=== PATIENT | male | born 1960 | race Caucasian/White ===

== ENCOUNTER 2017-04-17 15:07 | Observation (INO) | payer OTHER ==
[~2017-04-17] VITALS: Ht 160 cm; Wt 86.2 kg
[~2017-04-17 15:07] MED LIST: FLEXERIL10 MG PO; LEVAQUIN500 M1 PO; MOTRIN600 MG PO
--- NOTE | 2017-04-17 15:37 | ED GI/GU/ABDOMINAL COMPLAINT ---
History of Present Illness General Chief Complaint: Male Genitourinary Problems Stated Complaint: PT HAS NO BLOOD MOVING THRU RT TESTICLE Source: patient Exam Limitations: no limitations Vital Signs & Intake/Output Vital Signs & Intake/Output Vital Signs Date Time Temp Pulse Resp B/P B/P Pulse O2 O2 Flow FiO2 Mean Ox Delivery Rate 04/17 1537 99.0 89 22 130/78 98 Allergies Uncoded Allergies: CT DYE (Mild, NAUSEA 03/11/17) Reconcile Medications CYCLOBENZAPRINE HCL (Flexeril) 10 MG TAB 1 TAB PO Q8P PRN PAIN Ibuprofen (Motrin) 600 MG TAB 1 TAB PO Q6P PRN PAIN Levofloxacin (Levaquin) 500 MG TABLET 1 TAB PO DAILY EPIDIDIMYTIS Triage Note: PER PT TESTICULAR TORSION SENT BY [facility] AFTER + TEST Triage Nurses Notes Reviewed? yes Onset: Abrupt Duration: week(s): (4), intermittent Timing: recent history Location: scrotal Radiation: no radiation Activities at Onset: none No Modifying Factors: none HPI: 86-year-old male comes into the emergency room for further evaluation of right testicular pain and swelling. Patient was seen here about a month ago and had an ultrasound done and was diagnosed with epididymitis and sent to urology. Father with urologist. Symptoms were getting better. Given outpatient ultrasound done today and was told that there is no blood flow to his testicle and he needed to come to the hospital. He was on a course of ciprofloxacin. Denies any fever or vomiting. Comes in for further evaluation. Past History Travel History Traveled to [place] past 21 day No Medical History Any Pertinent Medical History? see below for history Neurological: NONE EENT: NONE Cardiovascular: NONE Respiratory: NONE Gastrointestinal: NONE Hepatic: NONE Renal: NONE Musculoskeletal: NONE Psychiatric: NONE Endocrine: NONE Blood Disorders: NONE Cancer(s): NONE OVERLOCK HEMMER/Reproductive: TESTICULAR SWELLING Surgical History Surgical History: non-contributory Psychosocial History What is your primary language Rw[place]an Tobacco Use: Never used Family History Hx Contributory? No Review of Systems Review of Systems Constitutional: Reports: no symptoms. EENTM: Reports: no symptoms. Respiratory: Reports: no symptoms. Cardiovascular: Reports: no symptoms. GI: Reports: no symptoms. Genitourinary: Reports: see HPI. Musculoskeletal: Reports: no symptoms. Skin: Reports: no symptoms. Neurological/Psychological: Reports: no symptoms. Hematologic/Endocrine: Reports: no symptoms. Immunologic/Allergic: Reports: no symptoms. All Other Systems: Reviewed and Negative Physical Exam Physical Exam General Appearance: well developed/nourished, no apparent distress, alert, awake Head: atraumatic, normal appearance Eyes: Bilateral: normal appearance, EOMI. Ears, Nose, Throat, Mouth: hearing grossly normal, moist mucous membrane Neck: normal inspection Respiratory: normal breath sounds, no respiratory distress Cardiovascular: regular rate/rhythm Gastrointestinal: soft Back: normal inspection Extremities: normal range of motion Neurologic/Psych: awake, alert, oriented x 3, normal gait Skin: intact, normal color Core Measures ACS in differential dx? No Sepsis Present: No Sepsis Focused Exam Completed? No Progress Differential Diagnosis: STD, testicular torsion, ureterolithiasis, urinary retention, urethritis, UTI/pyelo Plan of Care: Orders Procedure Date/time Status PARTIAL THROMBOPLASTIN TIME 04/17 1536 Complete PROTHROMBIN TIME 04/17 1536 Complete COMPREHENSIVE METABOLIC PANEL 04/17 1536 Complete CBC WITHOUT DIFFERENTIAL 04/17 1536 Complete EKG 04/17 1536 Active TYPE & SCREEN (NOT X-MATCH) 04/17 1536 Complete Laboratory Tests 04/17/17 1600: Anion Gap 15, Estimated GFR > 60, BUN/Creatinine Ratio 15.0, Glucose 98, Calcium 9.4, Total Bilirubin 0.8, AST 26, ALT 32, Alkaline Phosphatase 91, Total Protein 7.5, Albumin 4.5, Globulin 3.0, Albumin/Globulin Ratio 1.5, PT 11.6, INR 1.11, APTT 31, CBC w Diff NO MAN DIFF REQ, RBC 5.24, MCV 82.2, MCH 26.9 L, MCHC 32.7 L, RDW 13.3, MPV 7.6, Gran % 69.2, Lymphocytes % 21.8, Monocytes % 7.7, Eosinophils % 0.9, Basophils % 0.4, Absolute Granulocytes 6.8 H, Absolute Lymphocytes 2.1, Absolute Monocytes 0.8 H, Absolute Eosinophils 0.1, Absolute Basophils 0 Initial ED EKG: normal sinus rhythm, rate (91) Comments: 04/17/2017 5:21:[address] Hickman. He is going to do an orchiectomy on the patient and bring him to the OR today. Patient has not eating since 7 something this morning. Departure Departure Disposition: STILL A PATIENT Condition: Stable Clinical Impression Primary Impression: Testicular torsion Referrals: Viola RENAE,Jignesh Crowe (PCP/Family) Departure Forms: Customer Survey General Discharge Information OR/GI Note Spoke With: Ti Hickman MD Treatment Decision: ADIA GOTTLIEB requires urgent operative management or an emergent procedure that cannot be performed in the Emergency Room setting. Transport To: [facility] Critical Care Note Critical Care Note Critical Care Time: 30-74 min (45)
[2017-04-17 16:11] LABS: ABSOLUTE BASOPHIL COUNT 0 /CUMM (0.0-0.2); ABSOLUTE EOSINOPHIL COUNT 0.1 /CUMM (0.0-0.7); ABSOLUTE GRANULOCYTE CT 6.8 /CUMM (1.4-6.5); ABSOLUTE LYMPH COUNT 2.1 /CUMM (1.2-3.4); ABSOLUTE MONOCYTE COUNT 0.8 /CUMM (0.10-0.60); BASOPHIL % 0.4 % (0.0-2.0); EOSINOPHIL % 0.9 % (0-5); GRANULOCYTE % 69.2 % (42.2-75.2); HEMATOCRIT 43.1 % (42-52); MEAN CORPUSCULAR HGB 26.9 PG (27.0-31.0); MEAN CORPUSCULAR HGB CONC 32.7 G/DL (33.0-37.0); MEAN CORPUSCULAR VOLUME 82.2 FL (80.0-94.0); MEAN PLATELET VOLUME 7.6 FL (7.4-10.4); PLATELET COUNT 403 /CUMM (130-400); RBC DISTRIBUTION WIDTH 13.3 % (11.5-14.5); RED BLOOD CELL CT 5.24 /CUMM (4.70-6.10); WHITE BLOOD CELL COUNT 9.8 /CUMM (4.8-10.8)
[2017-04-17 16:28] LABS: PT 11.6 SEC (9.4-12.5); PTT 31 SEC (25-37)
--- NOTE | 2017-04-17 18:30 | Cons- Urology ---
General Information and HPI Consulting Request Date of Consult: 04/17/17 Requested By: MD JOHNNY, HARRELL-EMERGENCY MED. Reason for Consult: RIGHT TORSION OF TESTICLE Source of Information: patient, family, old records Exam Limitations: no limitations History of Present Illness: 56 YEAR OLD WITH RIGHT EPIDIDYMITIS: TXD WITH CIPRO 500 BID AND NSAIDS 400BID FOR WEEKS. INTERMITTENT IMPROVEMENT BUT NOT SIGNFICIANT. TODAY WITH EXTREME PAIN AND SENT FOR US-REVEALED NON FUNCTIONING TESTICLE. RISKS, BENEFITS OF ORCHIECTOMY DISCUSSED WITH PT AT LENGTH AND HE WISHES TO PROCEED WITH PLAN. Allergies/Medications Allergies: Uncoded Allergies: CT DYE (Mild, NAUSEA 03/11/17) Home Med List: CYCLOBENZAPRINE HCL (Flexeril) 10 MG TAB 1 TAB PO Q8P PRN PAIN Ibuprofen (Motrin) 600 MG TAB 1 TAB PO Q6P PRN PAIN Levofloxacin (Levaquin) 500 MG TABLET 1 TAB PO DAILY EPIDIDIMYTIS Past History Medical History Neurological: NONE EENT: NONE Cardiovascular: NONE Respiratory: NONE Gastrointestinal: NONE Hepatic: NONE Renal: NONE Musculoskeletal: NONE Psychiatric: NONE Endocrine: NONE Blood Disorders: NONE Cancer(s): NONE SKIN CARVER/Reproductive: TESTICULAR SWELLING Surgical History Pertinent Surgical History: non-contributory Psychosocial History Where Do You Live? Home Who Do You Live With? spouse Services at Home: None Primary Language: Kinyarwanda Smoking Status: Never Smoked ETOH Use: denies use Illicit Drug Use: denies illicit drug use Living Will? no Functional Ability ADLs Independent: dressing, eating, toileting, bathing. Ambulation: independent IADLs Independent: shopping, housework, finances, food prep, telephone, transportation , medication admin. Employment History Employment: Employed Retired? no Review of Systems Review of Systems Constitutional: Reports: fever, malaise. EENTM: Denies: no symptoms. Cardiovascular: Denies: no symptoms. Respiratory: Denies: no symptoms. GI: Reports: abdominal pain, bloating. Genitourinary: Reports: see HPI. Musculoskeletal: Denies: no symptoms. Skin: Denies: no symptoms. Neurological/Psychological: Reports: anxiety. Exam & Diagnostic Data Vital Signs and I&O Vital Signs Date Time Temp Pulse Resp B/P B/P Pulse O2 O2 Flow FiO2 Mean Ox Delivery Rate 04/17 1808 99.4 84 19 139/84 95 Room Air 04/17 1537 99.0 89 22 130/78 98 Intake & Output 04/17 1600 04/17 0800 04/17 0000 04/16 0804/16 0000 Intake Total Output Total Balance Patient 190 lb Weight Physical Exam General Appearance: well developed/nourished, no apparent distress, anxious Head: atraumatic Eyes: Bilateral: normal appearance. Ears, Nose, Throat: normal pharynx Neck: normal inspection, supple, full range of motion Respiratory: normal breath sounds Cardiovascular: regular rate/rhythm Gastrointestinal: normal bowel sounds, soft, non-tender Back: no vertebral tenderness Extremities: normal inspection Neurologic/Psych: no motor/sensory deficits, awake, alert, oriented x 3 Skin: intact, normal color, warm/dry Reproductive: RIGHT TESTICLE HARD AND HOT. Last 24 Hours of Labs: Laboratory Tests 04/17 1600 Chemistry Sodium (137 - 145 mmol/L) 141 Potassium (3.5 - 5.1 mmol/L) 3.8 Chloride (98 - 107 mmol/L) 102 Carbon Dioxide (22 - 30 mmol/L) 24 Anion Gap (5 - 16) 15 BUN (9 - 20 mg/dL) 15 Creatinine (0.7 - 1.2 mg/dL) 1.0 Estimated GFR (>60 ml/min) > 60 BUN/Creatinine Ratio (7 - 25 %) 15.0 Glucose (65 - 99 mg/dL) 98 Calcium (8.4 - 10.2 mg/dL) 9.4 Total Bilirubin (0.2 - 1.3 mg/dL) 0.8 AST (17 - 59 U/L) 26 ALT (21 - 72 U/L) 32 Alkaline Phosphatase (< 127 U/L) 91 Total Protein (6.3 - 8.2 g/dL) 7.5 Albumin (3.5 - 5.0 g/dL) 4.5 Globulin (1.9 - 4.2 gm/dL) 3.0 Albumin/Globulin Ratio (1.1 - 2.2 %) 1.5 Coagulation PT (9.4 - 12.5 SEC) 11.6 INR (0.90 - 1.17) 1.11 APTT (25 - 37 SEC) 31 Hematology CBC w Diff NO MAN DIFF REQ WBC (4.8 - 10.8 /CUMM) 9.8 RBC (4.70 - 6.10 /CUMM) 5.24 Hgb (14.0 - 18.0 G/DL) 14.1 Hct (42 - 52 %) 43.1 MCV (80.0 - 94.0 FL) 82.2 MCH (27.0 - 31.0 PG) 26.9 L MCHC (33.0 - 37.0 G/DL) 32.7 L RDW (11.5 - 14.5 %) 13.3 Plt Count (130 - 400 /CUMM) 403 H MPV (7.4 - 10.4 FL) 7.6 Gran % (42.2 - 75.2 %) 69.2 Lymphocytes % (20.5 - 51.1 %) 21.8 Monocytes % (1.7 - 9.3 %) 7.7 Eosinophils % (0 - 5 %) 0.9 Basophils % (0.0 - 2.0 %) 0.4 Absolute Granulocytes (1.4 - 6.5 /CUMM) 6.8 H Absolute Lymphocytes (1.2 - 3.4 /CUMM) 2.1 Absolute Monocytes (0.10 - 0.60 /CUMM) 0.8 H Absolute Eosinophils (0.0 - 0.7 /CUMM) 0.1 Absolute Basophils (0.0 - 0.2 /CUMM) 0 Imaging Results: PATIENT: ADIA GOTTLIEB PRESENT AGE: 56 PATIENT ACCOUNT NO: [id number] : 58 LOCATION: [facility] ORDERING PHYSICIAN: Ti Hickman MD SERVICE DATE: 04/17/171954 EXAM TYPE: US - US-TESTICULAR EXAMINATION: US SCROTUM CLINICAL INFORMATION: Intermittent scrotal pain for 2 years. Recently being treated for epididymitis. COMPARISON: Scrotal ultrasound dated 03/11/2017. TECHNIQUE: A sonogram of the scrotum was performed assessing hennessy-scale appearance and color Doppler flow. Spectral analysis and Doppler interrogation was performed. FINDINGS: RIGHT: Right testicle measures 4.2 x 2.8 x 3.6 cm cm, volume 30.1 mL. Parenchymal echotexture is normal. No focal testicular parenchymal lesions are visualized. No vascular flow is identified within the right testis with color Doppler imaging during the examination. The echotexture of the right testis is slightly heterogeneous but otherwise within normal limits. Right epididymal head is normal in size. A complex right hydrocele containing multiple septations is present, as well as scrotal wall thickening, with increased vascular flow within the thickened scrotal wall. LEFT: Left testicle measures 4.7 x 2.8 x 3.1 cm, volume 29 mL. Parenchymal echotexture is normal. No focal testicular parenchymal lesions are visualized. Normal symmetric intratesticular flow is visualized. Left epididymal head is normal in size; there are 2 small cystic structures present within the left epididymis measuring 1.1 x 1.5 x 1.3 cm and 0.8 x 0.7 x 0.8 cm consistent with small epididymal cysts or spermatoceles. No left hydrocele or varicocele is seen. IMPRESSION: 1. No arterial flow was demonstrated within the right testis throughout the examination. An attempt was made to contact the referring physician Dr. Mike Hickman at 14:40 on 04/17/2017, with this critical finding, however Dr. Hickman's office stated that Dr. Hickman was not in the office and unavailable to accept a call discussing the finding. The patient was immediately sent to the [facility] emergency Department for follow-up. 2. Complex fluid collection within the right scrotal region with multiple septations,, likely the sequela of the recent epididymitis. There is mild scrotal wall thickening and hyperemia, which could represent an ongoing infectious/inflammatory process. Other Results: Patient : ADIA GOTTLIEB Acct: [id number] DR: Nathalia Porter MD Birthdate: [birth year] Age/Sex: 56/M Unit: [id number] Loc: [facility] Status : DEP ER SPEC #: [id number] MILEY: 03/11/17 STATUS: COMP RECD: 03/11/[address]: Nathalia Porter MD SOURCE: URINE ROUT ENTR: 03/11/[address]: Viola RENAE,Jignesh Crowe SPDESC: URIN CLEAN ORDERED: URINE CULTURE COMMENT: UC ADDED @ 0924 JENNYFER Procedure Result > URINE CULTURE Final 03/13/17 NO GROWTH AFTER 2 DAYS Assessment/Plan Assessment/Plan RIGHT TESTICLE SEVERE INFECTION WTIH NO BLOOD FLOW-/RIGHT RADICAL ORCHIECTOMY. Copies To: Ti Hickman MD Consult Acknowledgment - Thank you for your consult request. Attending MD Review Statement Attending Statement Attending MD Statement: examined this patient, discuss w/resident/PA/ADJUTANT GENERAL Attending Assessment/Plan: TO OR TONIGHT FOR ORCHIECTOMY
[2017-04-17 22:50] VITALS: BP 122/78
[2017-04-18 01:17] VITALS: BP 110/78
[2017-04-18 04:24] VITALS: BP 110/74
[2017-04-18 06:00] VITALS: BP 110/74
--- NOTE | 2017-04-18 07:43 | PN- Urology ---
Surgical Brief Attending Note Brief Attending Note: 56 year old with right septic necrotic testicle. post op pain will require iv narcotics. post-op sepsis likely therefore requires 23 Hour obs. for iv abx. will reassess in am for dc home.
[2017-04-18] MEDS ORDERED: ONDANSETRON4 MG/2 M3 PO (07:46)
[2017-04-18] MEDS ORDERED: ZOLPIDEM TARTRAT5 M1 PO (07:46)
[2017-04-18] MEDS ORDERED: PERCOCET 5-3251 EACH PO (07:46)
[2017-04-18] MEDS ORDERED: DOCUSATE SODIU100 M3 PO (07:46)
--- NOTE | 2017-04-18 08:02 | Operative Report ---
Operative/Inv Procedure Report Surgery Date: 04/17/17 Name of Procedure: right radical orchiectomy-inguinal approach Pre-Operative Diagnosis: right severely infected testicle with no blood flow consistent with torsion. Post-Operative Diagnosis: same Estimated Blood Loss: 50ml to 100ml Surgeon/Canary Breeder: Ti Hickman MD Anesthesia: laryngeal mask airway, block Drains: none Specimens: right necrotic testicle and cord. Complications: none Operative/Procedure Note Note: The patient was taken to the operating room placed on the OR table in supine position. Timeout was performed, with the patient awake, in order to confirm correct patient identity, planned surgery, laterality, anesthesia, antibiotics, and other important perioperative information. After adequate anesthesia and antibiotics, the patient was then frog legged position. He was then draped, and prepped, after trimming the pubic hairs in the usual surgical fashion. After local anesthesia infiltrating the planned surgical site, a 3 cm incisions was made above the internal ring in oblique fashion on the RIGTH groin. The incision was carried down through the liz's fascia, to the level of the inguinal canal roof. The roof of the inguinal canal was opened, including the external ring, using a 15 blade knife. Blunt and sharp dissection was performed in order to expose and isolate the RIGHT inguinal cord, and the genitofemoral nerve. The genitofemoral nerve was gently retracted medially using a vascular rubber band to protect it. The RIGHT internal ring was identified along with the vas deferens on the left side. The vas deferens was clamped with 2 clamps, and incised between the 2 Agnes clamps using Bovie cautery. 0-silk stitch was used to tie the vas deferens off from the proximal cord. The RIGHT testicular cord was then bisected using Agnes clamps, and each segment was doubly clamped, and then transected using Bovie cautery. Both stumps were then suture ligated using 0 silk suture. The RIGHT testicle was then gently extruded, by inverting the scrotum into the surgical field at the groin incision. Once the testicle was extracted through the incision, the gubernaculum was then transected using Bovie cautery in order to release the testicle from the scrotal skin. Once the testicle and cord were released, they were sent to pathology. The entire surgical area was copiously irrigated with vancomycin solution and then dried. Cauterization, using Bovie cautery was performed in order to obtain good hemostasis. The ilioinguinal nerve was re-placed into its anatomic position. The roof of the inguinal canal was then reapproximated using 2-0 Vicryl running stitch, and re-forming in the external ring. The Liz's fascia was reapproximated using interrupted 2-0 Vicryl sutures. Vancomycin solution was once again used to irrigate the surgical field, and dried. The skin was then closed using 4-0 Monocryl subcuticular stitch. Dermabond and sterile gauze with Tegaderm was used to the skin incision. All sponge needle and instrument counts were correct at the end of the case. The patient tolerated the procedure well, and was then taken to the recovery room in satisfactory condition. Findings: necrotic testicle and epidydimus. Discharge Disposition: PACU Additional Comments: 23 H. obs for IV abx, and IV narcotics. CC: Ti Hickman MD
[2017-04-18 08:09] LABS: ABSOLUTE BASOPHIL COUNT 0 /CUMM (0.0-0.2); ABSOLUTE EOSINOPHIL COUNT 0.1 /CUMM (0.0-0.7); ABSOLUTE LYMPH COUNT 1.1 /CUMM (1.2-3.4); ABSOLUTE MONOCYTE COUNT 0.6 /CUMM (0.10-0.60); EOSINOPHIL % 0.9 % (0-5); MEAN PLATELET VOLUME 7.8 FL (7.4-10.4); PLATELET COUNT 349 /CUMM (130-400)
[2017-04-18 08:23] LABS: ABSOLUTE GRANULOCYTE CT 6.5 /CUMM (1.4-6.5); BASOPHIL % 0.3 % (0.0-2.0); MEAN CORPUSCULAR HGB 27.6 PG (27.0-31.0); MEAN CORPUSCULAR HGB CONC 33.4 G/DL (33.0-37.0); MEAN CORPUSCULAR VOLUME 82.7 FL (80.0-94.0); RBC DISTRIBUTION WIDTH 13.2 % (11.5-14.5); RED BLOOD CELL CT 4.55 /CUMM (4.70-6.10); WHITE BLOOD CELL COUNT 8.3 /CUMM (4.8-10.8)
[2017-04-18 08:43] LABS: HEMATOCRIT 37.6 % (42-52)
[2017-04-18 10:01] VITALS: BP 100/70
[2017-04-18 13:53] VITALS: BP 122/80
== END 2017-04-18 14:00 ==
LOC: ERH 15:07 → PACUH 20:38 → ENRESERV 21:58 → 2NA 22:40
PROVIDERS: Physician Assistant Medical; Urology
DX: N44.00 Torsion of testis, unspecified (principal); N50.89 Other specified disorders of the male genital organs; N44.02 Intravaginal torsion of spermatic cord
CPT/HCPCS: 6030; 36592; 88305; 93005; 93010; 96374; G0378; J0131; J0696; J3370; J3490